=== PATIENT | male | born 2005 | race Caucasian/White ===

== ENCOUNTER 2024-03-19 10:32 | Emergency (ER) | payer OTHER ==
[2024-03-19 11:36] LABS: BASOPHILS % (AUTO) 0.2 %; EOSINOPHILS # (AUTO) 0.1 10^3/uL (0.0-0.7); EOSINOPHILS % (AUTO) 0.9 %; HCT - HEMATOCRIT 43.7 % (42.0-52.0); HGB - HEMOGLOBIN 14.8 g/dL (14.0-18.0); LYMPHOCYTES # (AUTO) 1.5 10^3/uL (1.5-3.5); MEAN CORPUSCULAR HEMOGLOBIN 29.1 pg (27.0-31.0); MEAN CORPUSCULAR HGB CONC 33.9 g/dL (32.0-36.0); MONOCYTES # (AUTO) 0.6 10^3/uL (0.0-1.0); NEUTROPHILS % (AUTO) 73.5 %; PLT - PLATELET COUNT 189 10^3/uL (130-450); RED BLOOD COUNT 5.08 10^6/uL (4.70-6.10); RED CELL DISTRIBUTION WIDTH 11.7 % (12.0-15.0); WHITE BLOOD COUNT 8.1 x10^3/uL (4.8-10.8)
[2024-03-19 11:52] LABS: ALBUMIN 4.6 g/dL (3.2-5.5); ALBUMIN/GLOBULIN RATIO 1.9 (1.0-2.2); ALKALINE PHOSPHATASE 54 IU/L (42-121); ALT ALANINE AMINOTRANSFERASE 15 IU/L (10-60); AST ASPARTATE AMINOTRANSFERASE 13 IU/L (10-42); BUN - BLOOD UREA NITROGEN 21 mg/dL (6-20); CALCIUM 9.5 mg/dL (8.5-10.3); CARBON DIOXIDE - CO2 30 mmol/L (21-32); CHLORIDE 104 mmol/L (101-111); GFR - MDRD 95 (>89); GLUCOSE 103 mg/dL (74-104); LIPASE 14 U/L (11-82); POTASSIUM 4.2 mmol/L (3.5-4.5); SODIUM 138 mmol/L (135-145)
[2024-03-19 11:54] LABS: TROPONIN I HIGH SENSITIVITY < 2.3 ng/L (2.3-19.7)
--- NOTE | 2024-03-19 11:59 | ED Physician Documentation ---
History of Present Illness - Stated complaint Stated Complaint: FAINTING EPISODE - Chief complaint Chief Complaint: Neuro - Additonal information Additional information: Patient is a 19-year-old male presenting to the emergency department after fainting episode when he went to work this morning. Patient notes fatigue episode occurred around 1030 he was brought by EMS to the emergency department. Patient notes episode lasted for about 2 minutes. He did report shaking that his bodies reported. Patient denies any confusion after he notes no tongue biting or incontinence issues. Patient has no history of seizures. He has not take any medications regularly at home no history of cardiac problems. He notes symptoms occurred after he drank a large amount of water and felt it in his chest and then fainted shortly after. He notes no chest pain after he woke up no nausea vomiting diaphoresis symptoms. He notes he did have lightheadedness prior to fainting. He notes when he woke up this morning he did not eat breakfast and went straight to work. He notes he was feeling more fatigued than normal while he was at work but denies any other symptoms prior to starting work. PD PAST MEDICAL HISTORY - Past Medical History Past Medical History: Yes Cardiovascular: None Respiratory: None Neuro: None Endocrine/Autoimmune: None GI: None : None HEENT: None Psych: None Musculoskeletal: None Derm: None - Past Surgical History Past Surgical History: No - Present Medications Home Medications: Ambulatory Orders Medication Instructions Recorded Confirmed No Known Home Medications 11/19/15 03/19/24 - Allergies Allergies/Adverse Reactions: Allergies Allergy/AdvReac Type Severity Reaction Status Date / Time No Known Drug Allergies Allergy Verified 03/19/24 10:44 - Social History Does the pt smoke?: No Smoking Status: Former smoker Does the pt drink ETOH?: Yes Does the pt have substance abuse?: Yes Substance Use and Type: Marijuana - Immunizations Immunizations are current?: No Immunizations: Other immun not current - POLST Patient has POLST: No PD ED PE NORMAL - Vitals Vital signs reviewed: Yes - General General: Alert and oriented X 3 - HEENT HEENT: Atraumatic - Neck Neck: Supple, no meningeal sign - Cardiac Cardiac: RRR, No murmur, No gallop, No rub - Respiratory Respiratory: No respiratory distress, Clear bilaterally - Abdomen Abdomen: Normal bowel sounds, Non tender, Non distended - Extremities Extremities: No deformity, Normal ROM s pain, Other (No signs of head injury.) - Neuro Neuro: Alert and oriented X 3, Other (No focal neurodeficits strength intact in upper and lower extremities sensation intact in upper and lower extremities. Cranial nerves II through XII intact.) Eye Opening: Spontaneous Motor: Obeys Commands Verbal: Oriented GCS Score: 15 - Psych Psych: Normal mood, Normal affect Results - Vitals Vitals: Vital Signs - 24 hr 03/19/24 03/19/24 10:46 11:27 Temperature 36.2 C L Heart Rate 64 54 L Respiratory 16 11 L Rate Blood Pressure 130/86 H 119/75 O2 Saturation 100 99 Oxygen O2 Source Room air - EKG (time done) 1030 EKG releavant findings:: EKG personally interpreted by author of this note. Relevant findings are: Rate: Rate (enter#), Roland, Tachy, Other Rhythm: NSR [place]: Normal Intervals: Normal [place] QRS: Normal Ischemia: Normal ST segments Compare to prior EKG: Old EKG unavailable Computer interpretation: Agree with computer - Labs Labs: Laboratory Tests 03/19/24 03/19/24 03/19/24 10:52 11:19 11:19 WBC 8.1 RBC 5.08 Hgb 14.8 Hct 43.7 MCV 86.0 MCH 29.1 MCHC 33.9 RDW 11.7 L Plt Count 189 MPV 10.0 Neut # (Auto) 6.0 Lymph # (Auto) 1.5 [place] # (Auto) 0.6 Eos # (Auto) 0.1 Baso # (Auto) 0.0 Absolute Nucleated RBC 0.00 Nucleated RBC % 0.0 Sodium 138 Potassium 4.2 Chloride 104 Carbon Dioxide 30 Anion Gap 4.0 L BUN 21 H Creatinine 1.0 Estimated GFR (MDRD) 95 Glucose 103 POC Whole Bld Glucose 116 H Calcium 9.5 Total Bilirubin 1.0 AST 13 ALT 15 Alkaline Phosphatase 54 Troponin I High Sens < 2.3 L Total Protein 7.0 Albumin 4.6 Globulin 2.4 Albumin/Globulin Ratio 1.9 Lipase 14 - Rads (name of study) Chest X-ray Relevant Findings:: EMP independent interpretation of test PD Medical Decision Making - ED course Complexity details: reviewed old records, reviewed results, re-evaluated patient ED course: Patient is a 19-year-old male presenting to the emergency department presents to the emergency department after fainting episode shortly prior to arrival. Patient monitored here in the emergency department for approximately 2 hours. Patient notes symptoms of lightheadedness resolved here in emergency department. Patient notes symptoms occurred after he did not eat breakfast and drink a large amount of water all at once that felt like it stuck in his throat and he fainted while at work. He notes no persistent chest pain after waking up and not here in the emergency department. Patient denies any cardiac history. Normal vitals stable on arrival. Labs obtained here in emergency department showed no elevation in troponin no EKG changes. No signs of blocks or ST elevations. No electrolyte abnormalities and glucose level is stable. Patient monitored here in emergency department he did admit to hitting his head when he fell but denies any nausea or vomiting after this no seizure-like activity no persistent head pain at this time. Examination shows no signs of hemotympanum no raccoon eyes or renee signs. GCS 15 on evaluation. Discussed with patient reassuring workup here in emergency department. Chest x- ray reassuring no signs of aspiration and mediastinum within normal range no elevation of blood pressure and pulses intact in upper and lower extremities equal throughout. Patient tolerating p.o. here in emergency department. He feels back to baseline. Discussed with patient he should eat and drink when he returns home and take the day off of work. He was given a work note for today. Instructed patient strict return precautions if he does develops any persistent nausea vomiting any confusion any severe head pain changes in mental status or any other new or worsening symptoms. Patient understands and is agreeable with this plan. Departure - Departure Disposition: 01 Home, Self Care Clinical Impression: Vasovagal syncope Condition: Good Instructions: ED Near Syncope Vasovagal, ED Syncope Vasovagal Comments: You were seen here in the emergency department for your fainting episode. Your workup here in the emergency department showed no acute findings. Your workup here was reassuring. Symptoms most likely secondary to not eating breakfast and drinking a large amount of water while also going to work this morning. You should return to the emergency department if you develop any persistent nausea vomiting any confusion any severe head pain changes in mental status or any other new or worsening symptoms. You should come continue to eat and drink when you return home and rest I have given you a work note follow-up with your PCP in 1 week for reevaluation of symptoms. Forms: PCP List
--- NOTE | 2024-03-19 12:32 | XRAY Report ---
PROCEDURE: Chest 1V INDICATIONS: syncope TECHNIQUE: One view of the chest was acquired. COMPARISON: None. FINDINGS: Surgical changes and devices: None. Lungs and pleura: No pleural effusions or pneumothorax. Lungs are clear. Mediastinum: Mediastinal contours appear normal. Heart size is normal. Bones and chest wall: No suspicious bony lesions. Overlying soft tissues appear unremarkable. IMPRESSION: No acute cardiopulmonary process. Reviewed by: Boris Rodriguez MD on 03/19/2024 12:31 PM PDT Approved by: Boris Rodriguez MD on 03/19/2024 12:31 PM PDT Station ID: [id number]
[2024-03-19 12:54] VITALS: BP 134/74; O2SAT 100
== END 2024-03-19 12:48 | disposition home or self-care (01) ==
LOC: ED 10:32
DX: Z87.891 Personal history of nicotine dependence (principal); R55 Syncope and collapse
CPT/HCPCS: 36415; 80053; 83690; 84484; 85025; 93005; 99283; 99284